=== PATIENT | female | born 1980 | race Caucasian/White ===

== ENCOUNTER 2023-05-03 12:45 | Outpatient (RCR) | payer BC | END 2023-05-09 | disposition home or self-care (01) | LOC: MKS.ESL.PT | DX: I89.0 Lymphedema, not elsewhere classified (principal) ==

== ENCOUNTER 2023-05-10 07:54 | Outpatient (RCR) | payer BC | END 2023-06-08 | disposition home or self-care (01) | LOC: MKS.ESL.PT | DX: I89.0 Lymphedema, not elsewhere classified (principal) ==

== ENCOUNTER → 2023-07-02 | Outpatient (CLI) | payer BC | LOC: CANSCHCLI → MC.RAD 07:15 | DX: Z12.31 Encounter for screening mammogram for malignant neoplasm of breast (principal); N63.21 Unspecified lump in the left breast, upper outer quadrant; Z98.82 Breast implant status ==